=== PATIENT | female | born 1955 | race Caucasian/White ===

== ENCOUNTER → 2021-02-15 | Outpatient (CLI) | payer OTHER ==
[~2021-02-15] MED LIST: ATACAND HCT 321 EACH PO; ATORVASTATIN CA40 MG PO; JARDIANCE10 MG PO; NOVOLOG100 UNIT/1 SUBQ; TOUJEO SOL300 UNIT/1 SUBQ; TRICOR145 MG PO
== END | disposition home or self-care (01) ==
LOC: RAD 09:40
PROVIDERS: ATTEND Internal Medicine
DX: J84.89 Other specified interstitial pulmonary diseases (principal); R06.00 Dyspnea, unspecified

== ENCOUNTER → 2021-03-02 | Outpatient (CLI) | payer OTHER ==
[2021-03-02 10:15] LABS: CREATININE 0.8 mg/dL (0.6-1.0)
== END ==
LOC: CAT 02-16 13:42
PROVIDERS: ATTEND Internal Medicine
DX: R91.8 Other nonspecific abnormal finding of lung field (principal); R91.1 Solitary pulmonary nodule; N28.89 Other specified disorders of kidney and ureter; J47.9 Bronchiectasis, uncomplicated